=== PATIENT | male | born 1965 | race Caucasian/White ===

== ENCOUNTER 2017-01-13 20:02 | Emergency (ER) | payer OTHER ==
[2017-01-13 21:05] VITALS: TEMP 97.6; O2SAT 96
--- NOTE | 2017-01-13 21:15 | ED.PDOC ---
History of Present Illness - General Chief Complaint: General Stated Complaint: L sided pain - neck to leg Time Seen by Provider: 01/13/17 21:08 Source: patient Exam Limitations: no limitations - History of Present Illness Initial Comments: Hayden Morton 51 y/o male with long standing history of DM1 stated that he had burning sensation on his left leg more than the right for the last 3 days had also been hurting on his left arm where he had previous injury in the past after a fall. Timing/Duration: 24 hours Severity: moderate Improving Factors: nothing Worsening Factors: nothing Associated Symptoms: denies symptoms Allergies/Adverse Reactions: Allergies Penicillins Allergy (Severe, Verified 01/13/17 20:24) Rash Home Medications: Ambulatory Orders Celecoxib [Celebrex] 400 each PO BID 01/13/17 DULoxetine HCL [Cymbalta] 30 mg PO BEDTIME #30 cap 01/13/17 Gabapentin [Neurontin] 400 mg PO TID 01/13/17 Review of Systems - Review of Systems Constitutional: States: no symptoms reported EENTM: States: no symptoms reported Respiratory: States: no symptoms reported Cardiology: States: no symptoms reported Gastrointestinal/Abdominal: States: no symptoms reported Genitourinary: States: no symptoms reported Skin: States: no symptoms reported Neurological: States: paresthesia - lower extremities Endocrine: States: no symptoms reported Hematologic/Lymphatic: States: no symptoms reported Past Medical History (General) - Patient Medical History Hx Stroke: No Hx Cardiac Disorders: No Hx Congestive Heart Failure: No Hx Hypertension: Yes Hx Diabetes: Yes Hx Cancer: No Hx Hepatitis C: No Surgical History: no surgical history - Vaccination History Hx Tetanus, Diphtheria Vaccination: Yes Hx Influenza Vaccination: Yes Hx Pneumococcal Vaccination: Yes - Social History Hx Tobacco Use: Yes Hx Chewing Tobacco Use: No Hx Alcohol Use: Yes Hx Substance Use: No Hx Substance Use Treatment: No Hx Depression: No Feels Threatened In Home Enviroment: No Feels Threatened In a Relationship: No Hx Physical Abuse: No Hx Emotional Abuse: No Hx Suspected Abuse: No - Activities of Daily Living Patient Lives Alone: No - family Family Medical History - Family History Grandparents Family History: Unknown Hx Family Diabetes: Yes - dad Physical Exam - Physical Exam General Appearance: Agitated, Comfortable, No apparent distress Eye Exam: bilateral normal - with corrective glasses Ears, Nose, Throat: hearing grossly normal, normal ENT inspection, normal pharynx Neck: non-tender, full range of motion, supple Respiratory: chest non-tender, lungs clear, normal breath sounds, no respiratory distress Cardiovascular/Chest: normal peripheral pulses, regular rate, rhythm, no edema, no murmur Peripheral Pulses: radial,right: 2+, radial,left: 2+ Gastrointestinal/Abdominal: normal bowel sounds, non tender, soft, no organomegaly Back Exam: normal inspection, no CVA tenderness, no vertebral tenderness Extremity: normal range of motion, non-tender, normal inspection, no pedal edema , no calf tenderness Neurologic: alert, oriented x 3, sensory deficit - both distal third foot Skin Exam: normal color, warm/dry Lymphatic: no adenopathy Progress - Progress Progress: 01/13/17 22:40 Vital Signs - 8 hr 01/13/17 20:52 Temperature 97.6 F Pulse Rate [L 92 H Arm] Respiratory 20 Rate Blood Pressure 163/102 [Left Arm] O2 Sat by Pulse 96 Oximetry 01/13/17 21:28 URINALYSIS Stat 01/13/17 21:29 IV Care:Saline Lock per Protoc QSHIFT Laboratory Results - last 24 hr 01/13/17 01/13/17 01/13/17 21:40 21:40 21:40 WBC 8.1 RBC 4.79 Hgb 15.6 Hct 45.5 MCV 94.9 H MCH 32.6 H MCHC 34.3 RDW 14.0 Plt Count 265 MPV 8.8 Absolute Neuts (auto) 5.20 Absolute Lymphs (auto) 1.80 Absolute Monos (auto) 0.80 Absolute Eos (auto) 0.30 Absolute Basos (auto) 0.10 Neutrophils % 63.7 Lymphocytes % 21.6 Monocytes % 9.6 H Eosinophils % 4.2 Basophils % 0.9 Sodium 136 Potassium 4.7 Chloride 104 Carbon Dioxide 25 Anion Gap 11.7 L BUN 12 Creatinine 1.07 BUN/Creatinine Ratio 11.2 Random Glucose 381 H Serum Osmolality 287.4 Uric Acid 4.9 Calcium 8.5 Total Bilirubin 0.5 AST 22 ALT 24 Alkaline Phosphatase 111 Serum Total Protein 6.8 Albumin 4.1 Globulin 2.7 Albumin/Globulin Ratio 1.5 - EKG/XRAY/CT EKG: Sinus, no ST T wave changes Comments: heart rate 72 XRAY: c-spine - degenerative disc disease Departure - Departure Clinical Impression: Radiculopathy of cervicothoracic region Diabetic neuropathy associated with type 1 diabetes mellitus Qualifiers: Diabetes mellitus complication detail: diabetic polyneuropathy Qualified Code(s ): E10.42 - Type 1 diabetes mellitus with diabetic polyneuropathy Time of Disposition: 22:50 Disposition: Discharge to Home or Self Care Condition: Fair Departure Forms: ED Discharge - Pt. Copy, Patient Portal Self Enrollment Instructions: DI for Diabetic Neuropathy Referrals: EDUARDO BARCLAY [Primary Care Provider] - 1-2 Weeks Prescriptions: DULoxetine HCL [Cymbalta] 30 mg PO BEDTIME #30 cap Home Medications: Ambulatory Orders Celecoxib [Celebrex] 400 each PO BID 01/13/17 DULoxetine HCL [Cymbalta] 30 mg PO BEDTIME #30 cap 01/13/17 Gabapentin [Neurontin] 400 mg PO TID 01/13/17 Additional Instructions: FOLLOW UP WITH PRIMARY MD IN AM PATIENT TO CALL FOR APPOINTMENT;Continue with current medications
--- NOTE | 2017-01-13 22:02 | RAD ---
EXAM DESCRIPTION: Cervical Spine,3 Views CLINICAL HISTORY: 51 years Male pain COMPARISON: None. TECHNIQUE: Three view FINDINGS: Vertebral body alignment is unremarkable. No acute fractures are identified. Narrowing of C5-6 and C6-7 disc interspaces with marginal osteophytes. Uncovertebral spurring is present at C6. IMPRESSION: No acute fracture is identified. CT could be obtained to better evaluate if there is continued clinical concern. Electronically signed by: Chaparrita Calvin 01/13/2017 10:02 PM CDT
[2017-01-13] MEDS ORDERED: HYDROCOD/APAP 10/325 (ER DISP) # 3 tablets PO ONE (22:56)
[2017-01-13 23:20] VITALS: BP 157/101
== END 2017-01-13 23:21 | disposition home or self-care (01) ==
LOC: ER 20:02
DX: E10.42 Type 1 diabetes mellitus with diabetic polyneuropathy (principal); M54.12 Radiculopathy, cervical region; I10 Essential (primary) hypertension; Z88.0 Allergy status to penicillin; Z87.891 Personal history of nicotine dependence

== ENCOUNTER → 2017-03-07 | Outpatient (CLI) | payer OTHER | END | disposition home or self-care (01) | LOC: YCFC.O 10:28 | PROVIDERS: ATTEND Anesthesiology Pain Medicine | DX: Z79.891 Long term (current) use of opiate analgesic (principal) ==

== ENCOUNTER → 2017-04-18 | Outpatient (CLI) | payer OTHER ==
--- NOTE | 2017-04-18 11:38 | RAD ---
EXAM DESCRIPTION: Shoulder,Left 2 or More Views CLINICAL HISTORY: 51 years Male, PAIN IN LEFT SHOULDER COMPARISON: None. FINDINGS: 5 views of the left shoulder show no acute fracture or malalignment. The left AC joint is well-maintained. The soft tissues are unremarkable. There is no apparent left-sided rib fracture. No left scapular fracture is seen. IMPRESSION: Negative exam. Electronically signed by: Randall Hernandez MD 04/18/2017 11:37 AM CDT
--- NOTE | 2017-04-18 13:41 | MRI ---
EXAM DESCRIPTION: Cervical Spine CLINICAL HISTORY: DISC DEGENERATION left radiculopathy COMPARISON: None Available. TECHNIQUE: MRI of the cervical spine is performed according to our usual protocol. FINDINGS: Straightening of the cervical spine from C4 through C6 is present with multilevel mild to modest disc degeneration and loss of disc signal. No intradural or intramedullary abnormalities are noted. The foramen magnum and craniocervical junction is normal with modest degenerative changes anteriorly at C1-2. Prevertebral and paraspinous structures are normal without focal mass or edema or fluid collection. C2-3: the disc is well hydrated. There is no loss of height. There is no bulging. The facets are unremarkable with no significant hypertrophy. There is no stenosis or impingement. C3-4: Adequate spinal canal with moderate bilateral foraminal narrowing from uncinate process hypertrophy and predominant left facet arthropathy. A lateralizing herniation is not apparent. C4-5: Disc desiccation with mild symmetric annular bulge and adequate central canal without neural compression. Mild left and moderate right foraminal narrowing from uncinate process disease and facet arthropathy. No specific left-sided lateralizing abnormality is seen. C5-6: Advanced disc degeneration and narrowing with loss of disc signal and modest annular bulge and bony ridging with moderately severe bilateral foraminal narrowing with thecal sac lower limits of normal. Left slightly greater than right facet arthropathy. No lateralizing herniation seen C6-7: Disc desiccation and symmetric annular bulge with adequate central canal and right greater than left facet arthropathy secondary to uncinate process disease with adequate left neural foramen. Mild disc space narrowing. C7-T1: the disc is well hydrated. There is no loss of height. There is no bulging. The facets are unremarkable with no significant hypertrophy. There is no stenosis or impingement. IMPRESSION: 1. Diffuse disc desiccation with mild multilevel disc degeneration with moderate changes at C5-6 and to a lesser degree C6-7. 2. Thecal sac lower limits of normal at C5-6 from disc osteophyte complex and uncinate process hypertrophy with no lateralizing herniation and moderately severe bilateral foraminal encroachment, likely on a bony basis. 3. Annular bulge C6-7 with right greater than left foraminal encroachment with a similar appearance at C4-5. 4. Bilateral foraminal narrowing at C3-4 with adequate central canal and normal disc contour. Electronically signed by: Shay Clifford MD 04/18/2017 1:39 PM CDT
== END | disposition home or self-care (01) ==
LOC: RAD 07:33
PROVIDERS: ATTEND Anesthesiology Pain Medicine
DX: M50.33 Other cervical disc degeneration, cervicothoracic region (principal); M25.512 Pain in left shoulder

== ENCOUNTER 2017-05-09 05:00 | Day surgery (SDC) | payer OTHER ==
[2017-05-09] MEDS ORDERED: methylPREDNISolone ACETATE 80 MG/ML VIAL ONE (10:57)
[2017-05-09] MEDS ORDERED: SODIUM BICARBONATE VIAL 50 MEQ/50 ML VIAL ONE (10:57)
[2017-05-09] MEDS ORDERED: SODIUM CHLORIDE 0.9% 10 ML VIAL ONE (10:57)
[2017-05-09] MEDS ORDERED: LIDOCAINE 1% MPF 5 ML VIAL ONE (10:57)
[2017-05-09 14:06] VITALS: BP 162/99; TEMP 97.7; O2SAT 96
== END 2017-05-09 14:00 | disposition home or self-care (01) ==
LOC: AMB 05:00
PROVIDERS: ATTEND Anesthesiology Pain Medicine
DX: M50.10 Cervical disc disorder with radiculopathy, unspecified cervical region (principal); M54.2 Cervicalgia; E11.9 Type 2 diabetes mellitus without complications; E78.00 Pure hypercholesterolemia, unspecified; Z88.0 Allergy status to penicillin; F17.210 Nicotine dependence, cigarettes, uncomplicated; Z79.4 Long term (current) use of insulin; Z79.899 Other long term (current) drug therapy
CPT/HCPCS: 62321; 76000; J1030

== ENCOUNTER → 2017-05-24 | Outpatient (CLI) | payer OTHER | END | disposition home or self-care (01) | LOC: YCFC.O 14:05 | PROVIDERS: ATTEND Anesthesiology Pain Medicine | DX: Z79.891 Long term (current) use of opiate analgesic (principal) ==

== ENCOUNTER → 2017-11-20 | Outpatient (CLI) | payer OTHER | LOC: LAB.O 07:39 | PROVIDERS: ATTEND Family Medicine | DX: E11.9 Type 2 diabetes mellitus without complications (principal) ==

== ENCOUNTER → 2018-05-22 | Outpatient (CLI) | payer OTHER ==
--- NOTE | 2018-05-23 08:11 | RAD ---
EXAM DESCRIPTION: Shoulder,Left 2 or More Views CLINICAL HISTORY: 52 yearsMale, PAIN IN HIS LEFT SHOULDER COMPARISON: 04/18/2017 IMPRESSION: 4 views of the left shoulder demonstrate no evidence of acute fracture, dislocation, or destructive osseous lesion. Mild hypertrophic acromioclavicular osteoarthritis. There are also mild glenohumeral degenerative changes. Visualized portions of the left lung are clear. Electronically signed by: Capo Orellana MD 05/23/2018 8:10 AM [facility]
== END ==
LOC: RAD 15:47
PROVIDERS: ATTEND Orthopaedic Surgery
DX: M25.512 Pain in left shoulder (principal); M19.012 Primary osteoarthritis, left shoulder

== ENCOUNTER → 2018-06-16 | Outpatient (CLI) | payer OTHER | LOC: LAB.O 06:46 | PROVIDERS: ATTEND Family Medicine | DX: E10.9 Type 1 diabetes mellitus without complications (principal) ==

== ENCOUNTER → 2018-10-17 | Outpatient (CLI) | payer BC ==
--- NOTE | 2018-10-18 10:20 | MRI ---
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 TECHNIQUE: Multiplanar multiecho imaging of the left shoulder was performed without gadolinium administration. FINDINGS: Acromion: No significant lateral downsloping is identified. Acromioclavicular joint: Moderate degenerative changes are identified. Rotator cuff: Tendinopathy and articular surface fraying of the subscapularis. Tendinopathy of the supraspinatus with articular surface and bursal surface fraying. No tendon retraction. Tendinopathy of the infraspinatus with bursal surface fraying. The teres minor is intact. Biceps: Intact Labrum: Degenerative tear of the posterosuperior labrum is identified with a 1.1 x 0.5 cm paralabral cyst noted along the superior portion. Glenohumeral joint: Subchondral cysts are identified in the glenoid, suggestive of grade 4 cartilage loss. Capsule: Normal Bone marrow: As mentioned above. Joint effusion: None Additional findings: None IMPRESSION: 1. Moderate acromioclavicular joint osteoarthritis. 2. Degenerative tear of the postero-superior labrum at 11:00 position with an associated 1.1 x 0.5 cm paralabral cyst. 3. Multiple areas of grade 4 cartilage loss of the glenoid are noted with subchondral cysts. 4. Tendinopathy of the subscapularis, supraspinatus and infraspinatus with no tendon tear or retraction. Electronically signed by: Niki Baker MD 10/18/2018 10:17 AM CDT
== END ==
LOC: MRI 12:32
PROVIDERS: ATTEND Orthopaedic Surgery
DX: M75.102 Unspecified rotator cuff tear or rupture of left shoulder, not specified as traumatic (principal); M19.012 Primary osteoarthritis, left shoulder; M94.8X1 Other specified disorders of cartilage, shoulder

== ENCOUNTER → 2018-12-24 | Outpatient (CLI) | payer OTHER | LOC: LAB 07:08 | PROVIDERS: ATTEND Family Medicine | DX: E11.9 Type 2 diabetes mellitus without complications (principal) ==

== ENCOUNTER 2020-05-01 13:10 | Emergency (ER) | payer OTHER ==
--- NOTE | 2020-05-01 14:12 | RAD ---
EXAM DESCRIPTION: Wrist,Left 3 Views CLINICAL HISTORY: 54 years Male, palmar distal rad swelling, 24 hr after injury COMPARISON: None. Findings: 3 view(s)/radiograph(s) No acute fracture or dislocation. No focal soft tissue swelling. Carpal alignment maintained. Mild degenerative changes. IMPRESSION: No acute osseous abnormality in the left wrist. Electronically signed by: Sridhar Torres MD 05/01/2020 2:10 PM CDT
--- NOTE | 2020-05-01 14:29 | ED.PDOC ---
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 The patient woke up this morning having swelling to the palmar aspect of the wrist to the radial side. There is tenderness to palpation. No crepitus. No obvious bony deformity. He feels mild tingling in his hand which is not surprising given the swelling but no true sensation loss. Range of motion is grossly preserved. No other injury. Timing/Duration: 24 hours Severity: moderate Improving Factors: immobilization Worsening Factors: movement Associated Symptoms: denies symptoms Allergies/Adverse Reactions: Allergies Penicillins Allergy (Severe, Verified 05/01/20 13:32) Rash Home Medications: Ambulatory Orders Gabapentin [Neurontin] 600 mg PO TID 01/13/17 Review of Systems - Review of Systems Constitutional: States: no symptoms reported EENTM: States: no symptoms reported Respiratory: States: no symptoms reported Cardiology: States: no symptoms reported Gastrointestinal/Abdominal: States: no symptoms reported Genitourinary: States: no symptoms reported Musculoskeletal: States: see HPI Skin: States: no symptoms reported Neurological: States: see HPI Endocrine: States: no symptoms reported All other Systems: No Change from Baseline Past Medical History (General) - Patient Medical History Hx Seizures: No Hx Stroke: No Hx Dementia: No Hx Asthma: No Hx of COPD: No Hx Cardiac Disorders: No Hx Congestive Heart Failure: No Hx Pacemaker: No Hx Hypertension: Yes Hx Thyroid Disease: No Hx Diabetes: Yes Hx Gastroesophageal Reflux: No Hx Renal Disease: No Hx Cancer: No Hx of HIV: No Hx Hepatitis C: No Hx MRSA: No Surgical History: no surgical history - Vaccination History Hx Tetanus, Diphtheria Vaccination: Yes Hx Influenza Vaccination: Yes Hx Pneumococcal Vaccination: Yes - Social History Hx Tobacco Use: Yes Hx Chewing Tobacco Use: No Hx Alcohol Use: Yes Hx Substance Use: No Hx Substance Use Treatment: No Hx Depression: No Hx Physical Abuse: No Hx Emotional Abuse: No Hx Suspected Abuse: No Family Medical History - Family History Grandparents Family History: Unknown Hx Family Diabetes: Yes - dad Physical Exam - Physical Exam General Appearance: Alert, Comfortable, No apparent distress Eye Exam: bilateral normal Respiratory: no respiratory distress, no accessory muscle use Cardiovascular/Chest: normal peripheral pulses, no edema Peripheral Pulses: radial,right: 2+, radial,left: 2+ Rectal Exam: deferred Extremity: normal capillary refill, other - See history of present illness Neurologic: cheese cutter II-XII nml as tested, alert, normal mood/affect, oriented x 3 Skin Exam: normal color Comments: Vital Signs - 24 hr 05/01/20 13:32 Temperature 98.6 F Pulse Rate [ 98 H Right Radial] Respiratory 18 Rate Blood Pressure 180/103 [Left Arm] O2 Sat by Pulse 98 Oximetry Progress - Progress Progress: 05/01/20 14:27 The patient is a 54-year-old male presented emergency room secondary to pain in his left wrist that he incurred 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 There is mild swelling of the joint to the radial aspect. He does seem to have some tingling indicating nerve irritation but no true loss of sensation and normal range of motion otherwise. X-ray of the wrist shows no evidence of any fracture. This is most likely a bursitis because from the injury. The patient needs to do range of motion exercises several times a day, otherwise I want him to work in a wrist splint for now. He will likely have some discomfort to the area for the next month or 2. [id number] anti- inflammatory such as Motrin or Aleve may prove beneficial symptomatically. ER warnings are given. barrett barnes [phone] - Results/Orders Results/Orders: X-ray left wrist shows no acute bony injury. There is some soft tissue swelling. Departure - Departure Clinical Impression: Bursitis of left wrist Disposition: Discharge to Home or Self Care Condition: Fair Departure Forms: ED Discharge - Pt. 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 There is mild swelling of the joint to the radial aspect. He does seem to have some tingling indicating nerve irritation but no true loss of sensation and normal range of motion otherwise. X-ray of the wrist shows no evidence of any fracture. This is most likely a bursitis because from the injury. The patient needs to do range of motion exercises several times a day, otherwise I want him to work in a wrist splint for now. In the short-term he does need to try and avoid straining the wrist. He will likely have some discomfort to the area for the next month or 2. [id number] anti- inflammatory such as Motrin or Aleve may prove beneficial symptomatically. ER warnings are given.
[2020-05-01 14:55] VITALS: BP 153/91; TEMP 98; O2SAT 96
== END 2020-05-01 14:39 | disposition home or self-care (01) ==
LOC: ER 13:10
DX: M70.12 Bursitis, left hand (principal); I10 Essential (primary) hypertension; E11.9 Type 2 diabetes mellitus without complications; F17.200 Nicotine dependence, unspecified, uncomplicated; X50.9XXA Other and unspecified overexertion or strenuous movements or postures, initial encounter; Y92.89 Other specified places as the place of occurrence of the external cause; Y99.0 Civilian activity done for income or pay